=== PATIENT | female | born 1985 | race Caucasian/White ===

== ENCOUNTER 2017-02-10 09:19 | Emergency (ER) | payer SELFPAY ==
--- NOTE | 2017-02-10 10:42 | ED ---
Nirali De SooYoung, scribed for Demar Mcgee MD on 02/10/17 at 1021 . Throat Pain/Nasal Congestion - HPI Summary HPI Summary: A 32 y/o F presents to ED with c/o dental pain onset months ago worsening and over past three days. Pain is located at bottom L molar. Pt thinks it's become infected. She rates pain as 4 out of 10, increases to 8 at its worst. Associated sx: lymphnode swelling. Denies: fever. Pert PSHx: wisdom teeth. She says she's scheduled to see a dentist on 02/15. Smoker. NKA. - History of Current Complaint Chief Complaint: EDDentalPain Time Seen by Provider: 02/10/17 10:18 Hx Obtained From: Patient Onset/Duration: Lasting Days - worsened 3 days, Lasting Weeks - ongoing months Severity: Severe - 8/10 pain - Allergies/Home Medications Allergies/Adverse Reactions: Allergies Allergy/AdvReac Type Severity Reaction Status Date / Time No Known Allergies Allergy Verified 02/10/17 09:40 Home Medications: Home Medications Ibuprofen TAB* [Motrin TAB* 800 MG] 800 mg PO BID 02/10/17 [History Confirmed ] Tooth Anesthetic 1 applic PO QID 02/10/17 [History] PMH/Surg Hx/FS Hx/Imm Hx Previously Healthy: Yes Endocrine/Hematology History: Denies: Hx Diabetes, Hx Thyroid Disease Cardiovascular History: Denies: Hx Hypertension Respiratory History: Denies: Hx Asthma, Hx Chronic Obstructive Pulmonary Disease (COPD) GI History: Denies: Hx Ulcer Sensory History: Denies: Hx Contacts or Glasses Opthamlomology History: Denies: Hx Contacts or Glasses Infectious Disease History: Yes Infectious Disease History: Denies: Hx Clostridium Difficile, Hx Hepatitis, Hx Human Immunodeficiency Virus (HIV), Hx of Known/Suspected MRSA, Hx Shingles, Hx Tuberculosis, Hx Known/ Suspected VRE, Hx Known/Suspected VRSA, History Other Infectious Disease, Traveled Outside the [place] in Last 30 Days - Family History Known Family History: Positive: None Negative: Cardiac Disease, Hypertension, Diabetes - Social History Occupation: Unemployed Lives: With Family Alcohol Use: Weekly Hx Substance Use: Yes Substance Use Type: Reports: Marijuana Substance Use Comment - Amount & Last Used: daily Hx Tobacco Use: Yes Smoking Status (MU): Light Every Day Tobacco Smoker Type: Cigarettes Amount Used/How Often: 4-6 daily Review of Systems Negative: Fever Positive: Dental Pain, Other - swollen lympnode All Other Systems Reviewed And Are Negative: Yes Physical Exam Triage Information Reviewed: Yes Vital Signs On Initial Exam: Initial Vitals Temp Pulse Resp BP Pulse Ox 97.7 F 58 20 100/42 100 02/10/17 09:21 02/10/17 09:21 02/10/17 09:21 02/10/17 09:21 02/10/17 09:21 Vital Signs Reviewed: Yes Appearance: Positive: Well-Appearing, No Pain Distress Skin: Positive: Warm, Skin Color Reflects Adequate Perfusion Head/Face: Positive: Normal Head/Face Inspection Eyes: Positive: EOMI ENT: Positive: Pharynx normal, TMs normal Dental: Positive: Gross Decay/Caries @ - posterior left mandibular molar without abscess at gum line., Cervical Lymphadenopathy - very faint left anterior superior cervical lymph node. Neck: Positive: Supple, Nontender Respiratory/Lung Sounds: Positive: Clear to Auscultation Cardiovascular: Positive: RRR. Negative: Murmur Abdomen Description: Negative: Distended Musculoskeletal: Positive: Strength/ROM Intact Neurological: Positive: Sensory/Motor Intact, Alert, Oriented to Person Place, Time, CN Intact II-III, Speech Normal. Negative: Slurred Speech Psychiatric: Positive: Normal - Sharath Coma Scale Best Eye Response: 4 - Spontaneous Best Motor Response: 6 - Obeys Commands Best Verbal Response: 5 - Oriented Diagnostics - Vital Signs Vital Signs Temp Pulse Resp BP Pulse Ox 02/10/17 09:21 97.7 F 58 20 100/42 100 - Laboratory Lab Statement: Any lab studies that have been ordered have been reviewed, and results considered in the medical decision making process. EENT Course/Dx - Course Course Of Treatment: 32 yr old with old dental cavity, filling partially out and dental pain/infection without abcess. Place on Amox, and she has dentla appointment already on February 15. - Diagnoses Provider Diagnoses: Dental infection Discharge - Discharge Plan Condition: Stable Disposition: HOME Prescriptions: Amoxicillin PO (*) [Amoxicillin 500 MG CAP*] 500 mg PO TID #30 cap Patient Education Materials: Toothache (ED) Referrals: CHEYENNE MOSQUERA [Doctor of Dental Surgery] - No Primary Care Phys,NOPCP [Primary Care Provider] - The documentation as recorded by the Nirali westbrook SooYoung accurately reflects the service I personally performed and the decisions made by me, Demar Mcgee MD.
[2017-02-10 10:51] VITALS: BP 128/74
== END 2017-02-10 10:49 | disposition home or self-care (01) ==
LOC: ED 09:19
DX: K04.7 Periapical abscess without sinus (principal); R59.0 Localized enlarged lymph nodes; F12.90 Cannabis use, unspecified, uncomplicated; F17.210 Nicotine dependence, cigarettes, uncomplicated
CPT/HCPCS: 99282